=== PATIENT | male | born 1995 | race African-American/Black ===

== ENCOUNTER 2017-02-22 16:25 | Emergency (ER) | payer SELFPAY ==
[~2017-02-22] VITALS: Ht 190.5 cm; Wt 81.6 kg
[~2017-02-22 16:25] MED LIST: DEPAKOTE PO; DILANTIN PO; ZYRTEC10 M1; ZYRTEC10 M1 PO
[2017-02-22 17:00] LABS: BASOPHIL% 0.9 % (0-2.5); EOSINOPHIL# 0.1 X10e3 (0-0.7); HEMATOCRIT 41.8 % (38.0-50.0); HEMOGLOBIN 14.4 gm/dL (13.0-16.0); LYMPHOCYTE# 0.8 X10e3 (1.0-3.5); LYMPHOCYTE% 27.9 % (17.0-45.0); MEAN CELL VOLUME 90.4 FL (83-96); MEAN CORPUSCULAR HEMOGLOBIN 31.2 PG (28-34); MEAN CORPUSCULAR HGB CONC 34.5 g/dL (30-36); MEAN PLATELET VOLUME 8.8 FL (6.5-11.5); MONOCYTE# 0.4 X10e3 (0-1.0); MONOCYTE% 14.2 % (3.0-12.0); NEUTROPHIL# 1.6 X10e3 (1.5-7.1); PLATELET COUNT 219 X10e3 (140-420); RED BLOOD COUNT 4.62 X10e (3.90-5.60); RED CELL DISTRIBUTION WIDTH 13.7 % (11.0-15.5); WHITE BLOOD COUNT 2.9 X10e3 (4.0-10.5)
[2017-02-22 17:01] LABS: DIFF IND NO
[2017-02-22 17:28] LABS: BLOOD UREA NITROGEN 12 mg/dL (9-23); CALCIUM SERUM 9.1 mg/dL (8.4-10.2); CARBON DIOXIDE 26 mmol/L (22-31); CHLORIDE 105 mmol/L (100-111); CREATININE SERUM 0.8 mg/dL (0.6-1.4); GLUCOSE FASTING 126 mg/dL (70-110); POTASSIUM 3.5 mmol/L (3.5-5.1); SODIUM 137 mmol/L (135-145)
[2017-02-22 17:29] LABS: DEPAKENE (VALPROIC ACID) <10 UG/ML (50-125); DILANTIN (PHENYTOIN) <2.5 ug/mL (10.0-20.0)
== END 2017-02-22 17:52 | disposition home or self-care (01) ==
LOC: SED 16:25
PROVIDERS: Student in an Organized Health Care Education/Training Program
DX: G40.909 Epilepsy, unspecified, not intractable, without status epilepticus (principal); F17.200 Nicotine dependence, unspecified, uncomplicated; Z91.14 Patient's other noncompliance with medication regimen
CPT/HCPCS: 36415; 80048; 80164; 80185; 85025; 99284